=== PATIENT | female | born 1950 | race African-American/Black ===

== ENCOUNTER 2018-12-19 20:30 | Outpatient (CLI) | payer MEDICARE | END 2018-12-19 20:31 | disposition home or self-care (01) | LOC: SLEEPLAB 20:30 | PROVIDERS: ATTEND Family Medicine | DX: G47.33 Obstructive sleep apnea (adult) (pediatric) (principal); G47.9 Sleep disorder, unspecified; G47.10 Hypersomnia, unspecified; R06.83 Snoring; G47.00 Insomnia, unspecified; I10 Essential (primary) hypertension; E11.9 Type 2 diabetes mellitus without complications; I25.10 Atherosclerotic heart disease of native coronary artery without angina pectoris; F41.9 Anxiety disorder, unspecified | CPT/HCPCS: 95811 ==

== ENCOUNTER 2019-01-03 22:31 | Emergency (ER) | payer MEDICARE ==
--- NOTE | 2019-01-03 23:12 | RAD ---
RIGHT WRIST THREE VIEWS: 01/03/19 HISTORY: Fall. Right wrist pain. FINDINGS/IMPRESSION: There are mild degenerative changes present. No acute fracture or dislocation identified. If there is tenderness in the anatomic snuff box and symptoms are not improved, a followup exam shoul d be obtained in 7-10 days. POS: KEMAL
[2019-01-03] MEDS ORDERED: HYDROcodone/Acetaminophen 5/325 mg Tablet ONE (23:34)
== END 2019-01-03 23:38 | disposition home or self-care (01) ==
LOC: ERS 22:31
DX: S63.501A Unspecified sprain of right wrist, initial encounter (principal); E11.9 Type 2 diabetes mellitus without complications; I10 Essential (primary) hypertension; F41.9 Anxiety disorder, unspecified; Z79.84 Long term (current) use of oral hypoglycemic drugs; Z79.899 Other long term (current) drug therapy; W01.0XXA Fall on same level from slipping, tripping and stumbling without subsequent striking against object, initial encounter

== ENCOUNTER 2019-07-16 12:54 | Outpatient (CLI) | payer MEDICARE ==
--- NOTE | 2019-07-16 14:49 | MMO ---
Bilateral MAMMO Bilat Screen [facility]. CLINICAL HISTORY: Patient is 69 years old and is seen for screening. The patient has no family history of breast cancer. The patient has no personal history of cancer. VIEWS: The views performed were: bilateral craniocaudal with tomosynthesis; bilateral mediolateral oblique; and bilateral mediolateral oblique with tomosynthesis. FILMS COMPARED: The present examination has been compared to prior imaging studies performed at [facility] on 01/25/2010, 01/03/2014, 04/15/2015 and 12/06/2016. This study has been interpreted with the assistance of computer-aided detection. MAMMOGRAM FINDINGS: There are scattered fibroglandular densities. There are stable benign appearing calcifications seen in both breasts. There are also vascular calcifications. There are no suspicious masses, suspicious calcifications, or new areas of architectural distortion. IMPRESSION: THERE IS NO MAMMOGRAPHIC EVIDENCE OF MALIGNANCY. A ROUTINE FOLLOW-UP MAMMOGRAM IN 1 YEAR IS RECOMMENDED. THE RESULTS OF THIS EXAM WERE SENT TO THE PATIENT. ACR BI-RADS Category 2 - Benign finding MAMMOGRAPHY NOTE: 1. A negative mammogram report should not delay a biopsy if a dominant of clinically suspicious mass is present. 2. Approximately 10% to 15% of breast cancers are not detected by mammography. 3. Adenosis and dense breasts may obscure an underlying neoplasm. Reported by: MARGO CROWE MD Electonically Signed: [id number]
== END 2019-07-16 12:55 | disposition home or self-care (01) ==
LOC: BICMAMMO 12:54
PROVIDERS: ATTEND Family Medicine
DX: Z12.31 Encounter for screening mammogram for malignant neoplasm of breast (principal)
CPT/HCPCS: 77063; 77067

== ENCOUNTER 2020-09-22 10:50 | Emergency (ER) | payer MEDICARE ==
--- NOTE | 2020-09-22 12:13 | RAD ---
Left foot 3 views HISTORY: Left foot pain. FINDINGS: Lisfranc joint alignment is anatomic. Plantar arch is maintained. Mild to moderate joint space narrowing, osteophytosis, and subchondral sclerosis at the first metatar sophalangeal joint with mild lateral subluxation and valgus angulation. Resultant bunion deformity. No acute fracture, dislocation, or aggressive osseous erosions. Beaking of the superior margin of the anterior talus on the lateral view. Small Achilles and plantar enthesophytes at the posterior aspect of the calcaneus. IMPRESSION : At the first metatarsophalangeal joint, there is mild to moderate osteoarthritic changes, hallux valg us and bunion deformity. No acute osseous abnormalities are demonstrated. Small heel spurs.
[2020-09-22] MEDS ORDERED: predniSONE 20 MG TAB ONE (14:00)
[2020-09-22] MEDS ORDERED: Ketorolac Tromethamine 30 MG/ML VIAL ONE (14:00)
== END 2020-09-22 14:45 | disposition home or self-care (01) ==
LOC: ERS 10:50
DX: M10.9 Gout, unspecified (principal); I10 Essential (primary) hypertension; E78.5 Hyperlipidemia, unspecified; E11.9 Type 2 diabetes mellitus without complications; E78.00 Pure hypercholesterolemia, unspecified; Z79.84 Long term (current) use of oral hypoglycemic drugs
CPT/HCPCS: 96372; J1885; J7512

== ENCOUNTER 2023-11-28 06:53 | Inpatient (IN) | payer MEDICARE, SELFPAY ==
[2023-11-28] MEDS ORDERED: fentaNYL 50 mcg/mL 1 mL Vial ONE (06:59)
[2023-11-28] MEDS ORDERED: Atropine Sulfate 1 mg/10 ml Syringe ONE (06:59)
[2023-11-28] MEDS ORDERED: PHENYLEPHRINE-NS 100 MCG/ML 10 ML SYRINGE ONE (06:59)
[2023-11-28] MEDS ORDERED: Heparin 10,000 UNITS/ 10 ML VIAL ONE ×2 (07:00→07:05)
[2023-11-28] MEDS ORDERED: Lidocaine 1% (PF) 30 ML VIAL ONE (07:00)
[2023-11-28] MEDS ORDERED: Heparin 25,000 UNITS/D5W 500 ml bag ONE (07:05)
[2023-11-28 07:11] LABS: #Eosinphils 0.2 thou/uL (0.0-0.7); #Neutrophils 5.3 thou/uL (1.40-6.50); %Basophils 0.3 % (0.0-1.0); %Eosinophils 1.8 % (0.0-10.0); %Lymphocytes 35.4 % (21.0-51.0); %Monocytes 10.2 % (0.0-10.0); %Neutrophils 52.1 % (42.0-75.0); Hematocrit 36.8 % (36.0-47.0); Hemoglobin 12.1 g/dL (12.0-16.0); Mean Corpuscular HGB CONC 32.9 g/dL (32.0-36.0); Mean Corpuscular Hemoglobin 29.6 pg (27.0-31.0); Mean Platelet Volume 10.8 fL (7.4-10.4); Platelet Count 331 10x3/uL (130-400); RBC Distribution Width 13.4 % (11.5-14.5); Red Blood Cell (RBC) Count 4.09 mill/uL (4.20-5.40); White Blood Cell (WBC) Count 10.2 10x3/uL (4.8-10.8)
[2023-11-28 07:27] LABS: PTT 24.3 sec (22.9-36.1); Prothrombin Time 13.1 sec (12.0-14.7)
[2023-11-28 07:30] LABS: ALT (SGPT) 23 U/L (8-55); AST (SGOT) 20 U/L (5-34); Albumin 3.8 g/dL (3.4-4.8); Alkaline Phosphatase 87 U/L (40-110); Anion Gap 15 mmol/L (10-20); BUN (Urea Nitrogen) 17 mg/dL (9.8-20.1); Bilirubin, Total 0.2 mg/dL (0.2-1.2); Calc. Creatinine Clearance 0 mL/min (70-130); Calcium 8.9 mg/dL (7.8-10.44); Carbon Dioxide 22 mmol/L (23-31); Chloride 104 mmol/L (98-107); Estimated GFR 52; Globulin 3.5 g/dL (2.4-3.5); Glucose 289 mg/dL (83-110); Lipase 20 U/L (8-78); Protein, Total 7.3 g/dL (5.8-8.1); Sodium 137 mmol/L (136-145)
[2023-11-28 07:34] LABS: Troponin I 0.026 ng/mL (< 0.028)
[2023-11-28] MEDS ORDERED: Morphine 4 MG/ML VIAL ONE (07:41)
[2023-11-28] MEDS ORDERED: Clopidogrel Bisulfate 300 MG TAB ONE (07:50)
[2023-11-28] MEDS ORDERED: TICAGRELOR 90 MG TABLET ONE (08:03)
[2023-11-28] MEDS ORDERED: hydrALAZINE 20 MG/ML VIAL ONE (08:53)
[2023-11-28] MEDS ORDERED: Nitroglycerin 0.4 MG TAB (25 Tab Bottle) SL PRN ×2 (09:09)
[2023-11-28] MEDS ORDERED: Heparin 25,000 units/D5W 500 ML IVPB SCH (09:15)
[2023-11-28] MEDS ORDERED: Heparin 10,000 UNITS/ 10 ML VIAL SLOW IVP SCH (09:15)
[2023-11-28] MEDS: Nitroglycerin 50 MG/250 ML BOT 250 ML ONE (10:00)
[2023-11-28] MEDS: Ondansetron PF 4 MG/2 ML Vial IVP PRN (10:52)
[2023-11-28 10:59] VITALS: BMI 35.6
[2023-11-28 11:11] LABS: Hematocrit 35.6 % (36.0-47.0); Hemoglobin 11.6 g/dL (12.0-16.0); Platelet Count 323 10x3/uL (130-400)
[2023-11-28 11:39] LABS: Critical Call Chem Troponin I NUR.LRH@1138; Troponin I 16.845 ng/mL (< 0.028)
[2023-11-28] MEDS ORDERED: Nitroglycerin 50 MG/250 ML BOT 250 ML IVPB SCH (11:45)
[2023-11-28 11:49] LABS: PTT 202.9 sec (22.9-36.1)
[2023-11-28] MEDS: TICAGRELOR 90 MG TABLET PO SCH ×2 (12:02→20:36)
[2023-11-28] MEDS: Morphine 2 MG/ML VIAL SLOW IVP PRN (14:08)
[2023-11-28] MEDS: hydrALAZINE 25 MG TAB PO SCH ×2 (14:09→20:35)
[2023-11-28] MEDS: Sodium Chloride 0.9% 1,000 ML IV SCH (15:10)
[2023-11-28] MEDS: Lidocaine 1% w/Epinephrine 1:100K 20 ML VIAL ONE (15:43)
[2023-11-28 16:12] LABS: Critical Call Chem Troponin I NUR.LRH AT 1611; Troponin I Greater than 45.000 ng/mL (< 0.028)
[2023-11-28] MEDS: Calcium Carbonate 500 MG ChewTAB PO PRN (19:59)
[2023-11-28] MEDS: metFORMIN 500 MG TAB PO SCH (20:35)
[2023-11-28] MEDS: Metoprolol Tartrate 25 MG TAB PO SCH (20:36)
[2023-11-28] MEDS: Atorvastatin Calcium 40 MG TAB PO SCH (20:37)
[2023-11-29 05:05] LABS: #Eosinphils 0.1 thou/uL (0.0-0.7); #Monocytes 1.7 thou/uL (0.11-0.59); #Neutrophils 11.1 thou/uL (1.40-6.50); %Basophils 0.2 % (0.0-1.0); %Eosinophils 0.5 % (0.0-10.0); %Lymphocytes 19.2 % (21.0-51.0); %Monocytes 10.5 % (0.0-10.0); %Neutrophils 69.2 % (42.0-75.0); Hematocrit 31.2 % (36.0-47.0); Hemoglobin 10.6 g/dL (12.0-16.0); Mean Corpuscular Hemoglobin 30.3 pg (27.0-31.0); Mean Corpuscular Volume 89.1 fl (78.0-98.0); Platelet Count 304 10x3/uL (130-400); RBC Distribution Width 13.8 % (11.5-14.5)
[2023-11-29 05:53] LABS: ALT (SGPT) 47 U/L (8-55); AST (SGOT) 221 U/L (5-34); Albumin 3.3 g/dL (3.4-4.8); Alkaline Phosphatase 74 U/L (40-110); Anion Gap 15 mmol/L (10-20); BUN (Urea Nitrogen) 17 mg/dL (9.8-20.1); Bilirubin, Total 0.5 mg/dL (0.2-1.2); Calc. Creatinine Clearance 86 mL/min (70-130); Calcium 8.7 mg/dL (7.8-10.44); Carbon Dioxide 22 mmol/L (23-31); Cardiac Risk 4.4 (Less than 4.5); Chloride 106 mmol/L (98-107); Cholesterol 155 mg/dl (< 200 Desired); Estimated GFR 65; Glucose 179 mg/dL (83-110); HDL Cholesterol 35 mg/dL (>60 Neg Risk); LDL Cholesterol, Calculated 94 mg/dL; Potassium 3.9 mmol/L (3.5-5.1); Protein, Total 6.3 g/dL (5.8-8.1); Sodium 139 mmol/L (136-145); Triglycerides 129 mg/dL (Less than 150)
[2023-11-29] MEDS: Empagliflozin 10 MG TAB PO SCH (08:14)
[2023-11-29] MEDS: Lisinopril 2.5 MG TAB PO SCH (08:14)
[2023-11-29] MEDS: Spironolactone 25 MG TAB PO SCH (08:14)
[2023-11-29] MEDS: Aspirin 81 mg Enteric Coated Tablet PO SCH (08:14)
[2023-11-29] MEDS ORDERED: Dextrose 50% Abboject 50 ML SYRINGE SLOW IVP PRN (09:24)
[2023-11-29] MEDS ORDERED: Dextrose 5% in Water 1,000 ML IV PRN (09:24)
[2023-11-29] MEDS ORDERED: Glucagon 1 MG/ML KIT IM PRN (09:24)
[2023-11-29 10:46] LABS: Critical Call Chem Troponin I @DECREASING; Troponin I 160.343 ng/mL (< 0.028)
[2023-11-29 11:06] LABS: Hemoglobin A1c 8.6 % (4.0-6.0)
[2023-11-29] MEDS: Labetalol HCl 100 MG/20 ML VIAL SLOW IVP PRN (15:11)
[2023-11-30 04:26] LABS: #Eosinphils 0.2 thou/uL (0.0-0.7); #Monocytes 1.4 thou/uL (0.11-0.59); %Basophils 0.2 % (0.0-1.0); %Eosinophils 1.5 % (0.0-10.0); %Lymphocytes 21.1 % (21.0-51.0); %Monocytes 10.2 % (0.0-10.0); %Neutrophils 66.6 % (42.0-75.0); Hematocrit 31.8 % (36.0-47.0); Hemoglobin 10.5 g/dL (12.0-16.0); Mean Corpuscular Hemoglobin 29.7 pg (27.0-31.0); Mean Corpuscular Volume 90.1 fl (78.0-98.0); Mean Platelet Volume 11.3 fL (7.4-10.4); Platelet Count 281 10x3/uL (130-400); RBC Distribution Width 13.9 % (11.5-14.5); Red Blood Cell (RBC) Count 3.53 mill/uL (4.20-5.40); White Blood Cell (WBC) Count 13.6 10x3/uL (4.8-10.8)
[2023-11-30 04:52] LABS: Anion Gap 14 mmol/L (10-20); BUN (Urea Nitrogen) 15 mg/dL (9.8-20.1); Calc. Creatinine Clearance 80 mL/min (70-130); Calcium 8.7 mg/dL (7.8-10.44); Carbon Dioxide 21 mmol/L (23-31); Chloride 109 mmol/L (98-107); Estimated GFR 60; Glucose 159 mg/dL (83-110); Potassium 3.8 mmol/L (3.5-5.1); Sodium 140 mmol/L (136-145)
[2023-11-30] MEDS: HumaLOG 300 UNITS/3 ML VIAL SC PRN (05:49)
[2023-11-30 08:34] VITALS: BP 142/64; TEMP 98.6
[2023-11-30] MEDS: Carvedilol 6.25 MG TAB PO SCH (08:58)
[2023-11-30 09:04] LABS: Hematocrit 34.4 % (36.0-47.0); Hemoglobin 10.9 g/dL (12.0-16.0); Platelet Count 291 10x3/uL (130-400)
[2023-11-30] MEDS ORDERED: Sacubitril 24MG/Valsartan 26 MG TAB PO SCH (21:00)
== END 2023-11-30 10:53 | disposition home or self-care (01) | DRG 322 ==
LOC: ERS 06:53 → CCU 06:58 → 2NO 11-29 19:47
PROVIDERS: ADMIT Internal Medicine Cardiovascular Disease; ATTEND Internal Medicine Cardiovascular Disease
PROC: 0HQ1XZZ Repair Face Skin, External Approach (ICD-10-PCS; 2023-11-28)
PROC: 027035Z Dilation of Coronary Artery, One Artery with Two Drug-eluting Intraluminal Devices, Percutaneous Approach (ICD-10-PCS; principal; 2023-11-30)
PROC: 02C03ZZ Extirpation of Matter from Coronary Artery, One Artery, Percutaneous Approach (ICD-10-PCS; 2023-11-30)
DX: I21.19 ST elevation (STEMI) myocardial infarction involving other coronary artery of inferior wall (principal); I25.10 Atherosclerotic heart disease of native coronary artery without angina pectoris; I10 Essential (primary) hypertension; E11.9 Type 2 diabetes mellitus without complications; F41.9 Anxiety disorder, unspecified; E78.5 Hyperlipidemia, unspecified; I25.5 Ischemic cardiomyopathy; G47.33 Obstructive sleep apnea (adult) (pediatric); Z98.42 Cataract extraction status, left eye; Z98.41 Cataract extraction status, right eye; Z79.82 Long term (current) use of aspirin; Z79.899 Other long term (current) drug therapy
CPT/HCPCS: 36415; 36416; 70250; 71045; 80048; 80053; 80061; 83036; 83690; 83880; 84484; 85014; 85018; 85025; 85049; 85347; 85610; 85730; 86850; 86900; 86901; 92928; 92934; 92941; 92973; 93005; 93010; 93306; 93458; 93798; 96374; 96375; C1725; C1769; C1874; C9600; C9603; C9606; J0360; J0461; J1644; J2001; J2270; J2272; J2405; J3010; J7050